=== PATIENT | female | born 1980 | race Caucasian/White ===

== ENCOUNTER 2023-02-10 14:02 | Inpatient (IN) ==
[2023-02-10 15:08] LABS: ABS Lymphocytes 1.1 10^3/uL (1.0-4.8); ABS Monocytes 0.7 10^3/uL (0.0-0.9); Eosinophil % 0.2 %; Hematocrit 38.4 % (35-45); Hemoglobin 13.3 g/dL (11.5-14.3); Lymphocyte % 12.3 %; Mean Corpuscular Hemoglobin 31.8 pg (27-33); Mean Corpuscular Hgb Conc 34.5 g/dL (31-36); Mean Corpuscular Volume 92.2 fL (80-97); Mean Platelet Volume 7.8 fL (7.5-11.2); Nucleated Red Blood Cells % 0.1 /100 WBC (0.0-0.4); Platelet Count 256 10^3/uL (150-450); Red Blood Count 4.16 10^6/uL (3.63-4.92); Red Cell Distribution Width 13.7 % (12-17); White Blood Count 8.9 10^3/uL (3.8-11.8)
[2023-02-10] MEDS ORDERED: oxyCODONE/Acetamin 5/325 mg TAB PO PRN (15:09)
[2023-02-10] MEDS ORDERED: Naloxone 0.4 mg VIAL 0.4 mg/ml 1 ml VIAL IV PRN (15:09)
[2023-02-10] MEDS ORDERED: Ondansetron 4 mg VIAL 2 MG/ML 2 ml VIAL IV PRN ×2 (15:09→18:43)
[2023-02-10] MEDS ORDERED: fentaNYL 100 mcg/2 ml 50 MCG/ML VIAL ONE ×5 (15:16→19:24)
[2023-02-10 15:17] LABS: INR 1.35 (0.88-1.18)
[2023-02-10] MEDS: fentaNYL 100 mcg/2 ml 50 MCG/ML VIAL IV PRN ×7 (15:18→19:41)
[2023-02-10 15:53] LABS: Albumin 4.3 g/dL (3.2-5.2); Albumin/Globulin Ratio 1.8 (1-3); C Reactive Protein 266.07 mg/L (<8.01); Creatinine, Serum 0.6 mg/dL (0.51-0.95); Globulin 2.4 g/dL (2-4); Potassium 3.7 mmol/L (3.5-5.0); Total Bilirubin 0.8 mg/dL (0.2-1.0); Total Protein 6.7 g/dL (6.4-8.9); eGFR CKD-EPI 114.9 (>60)
[2023-02-10] MEDS ORDERED: Ropivacaine 5 MG/ML 20 ML VIAL 0.5% (100 MG) ONE (17:05)
[2023-02-10] MEDS ORDERED: Midazolam 2 mg/2 ml VIAL 1 mg/ml 2 ml VIAL (2 mg) ONE (17:33)
[2023-02-10] MEDS ORDERED: HYDROmorphone 0.5 MG/0.5 ML SYRINGE ONE (17:34)
[2023-02-10] MEDS ORDERED: Ondansetron 4 mg VIAL 2 MG/ML 2 ml VIAL ONE (17:40)
[2023-02-10] MEDS ORDERED: Dexamethasone IV 4 MG/ML VIAL 1 ml VIAL ONE (17:40)
[2023-02-10 17:42] LABS: Erythrocyte Sed Rate 60 mm/Hr (0-19)
[2023-02-10] MEDS ORDERED: ceFAZolin 2 GM in NS PREMIX 2 GM/100 ML BAG IVPB ONE (17:47)
[2023-02-10] MEDS ORDERED: Morphine 10 MG/ML VIAL (1 ml) IV PRN (18:43)
[2023-02-10] MEDS ORDERED: Vancomycin 1,000 MG in NS 0.9% 250 ml 250 ML IVPB ONE (19:03)
[2023-02-10] MEDS ORDERED: oxyCODONE/Acetamin 5/325 mg TAB ONE (19:26)
[2023-02-10] MEDS ORDERED: Vancomycin 1500 MG IV - x ONCE IVPB ONE (21:00)
[2023-02-10] MEDS ORDERED: Vancomycin per Pharmacy 1 EA NOTE FOLLOW UP SCH (21:00)
[2023-02-10] MEDS: Lactated Ringers 1000 ml BAG 1,000 ML IV SCH (21:09)
[2023-02-10] MEDS ORDERED: Cefepime ADVAN 1 GM in NS 0.9% 50 ML 50 ML IVPB SCH (22:00)
[2023-02-10] MEDS: oxyCODONE/Acetamin 5/325 mg TAB PO PRN (22:22)
[2023-02-10] MEDS ORDERED: Naloxone Nasal Spray 4 MG/0.1 ML NASAL.SPR INTRANASAL PRN (22:45)
[2023-02-10] MEDS ORDERED: Senna TAB 8.6 mg TAB PO PRN (22:46)
[2023-02-10] MEDS: Cefepime 1 GM in Dextrose 1 GM/50 ML BAG IV SCH (22:59)
[2023-02-10] MEDS: HYDROmorphone 1 MG/1 ML SYRINGE IV SLOW PU PRN (23:25)
[2023-02-11] MEDS: oxyCODONE/Acetamin 5/325 mg TAB PO PRN ×4 (01:54→19:58)
[2023-02-11] MEDS: Cefepime 1 GM in Dextrose 1 GM/50 ML BAG IV SCH ×3 (05:02→21:26)
[2023-02-11] MEDS: Vancomycin 1,250 MG in NS 0.9% 250 ml 250 ML IVPB SCH ×3 (05:31→22:54)
[2023-02-11] MEDS: HYDROmorphone 1 MG/1 ML SYRINGE IV SLOW PU PRN ×5 (06:14→22:46)
[2023-02-11] MEDS: Lactated Ringers 1000 ml BAG 1,000 ML IV SCH ×2 (07:22→17:54)
[2023-02-12] MEDS: oxyCODONE/Acetamin 5/325 mg TAB PO PRN ×5 (00:18→19:23)
[2023-02-12] MEDS: HYDROmorphone 1 MG/1 ML SYRINGE IV SLOW PU PRN ×5 (03:02→22:24)
[2023-02-12] MEDS: Cefepime 1 GM in Dextrose 1 GM/50 ML BAG IV SCH ×3 (05:02→21:34)
[2023-02-12] MEDS ORDERED: Vancomycin Trough Check NOTE FOLLOW UP ONE (05:30)
[2023-02-12] MEDS: Vancomycin 1,250 MG in NS 0.9% 250 ml 250 ML IVPB SCH ×3 (07:58→22:24)
[2023-02-12] MEDS: Lactated Ringers 1000 ml BAG 1,000 ML IV SCH (11:07)
[2023-02-13] MEDS: oxyCODONE/Acetamin 5/325 mg TAB PO PRN ×6 (00:59→21:22)
[2023-02-13] MEDS: Lactated Ringers 1000 ml BAG 1,000 ML IV SCH (01:51)
[2023-02-13] MEDS: HYDROmorphone 1 MG/1 ML SYRINGE IV SLOW PU PRN ×5 (02:45→22:13)
[2023-02-13] MEDS: Cefepime 1 GM in Dextrose 1 GM/50 ML BAG IV SCH (05:10)
[2023-02-13] MEDS: Vancomycin 1,250 MG in NS 0.9% 250 ml 250 ML IVPB SCH (06:06)
[2023-02-13 06:08] LABS: ABS Basophils 0.1 10^3/uL (0.0-0.1); ABS Eosinophils 0.1 10^3/uL (0.0-0.5); ABS Lymphocytes 1.5 10^3/uL (1.0-4.8); ABS Neutrophils 4.7 10^3/uL (1.5-7.6); Eosinophil % 1.2 %; Hemoglobin 11.8 g/dL (11.5-14.3); Lymphocyte % 20.9 %; Mean Corpuscular Hemoglobin 32.3 pg (27-33); Mean Corpuscular Hgb Conc 34.6 g/dL (31-36); Mean Corpuscular Volume 93.4 fL (80-97); Mean Platelet Volume 7.7 fL (7.5-11.2); Platelet Count 266 10^3/uL (150-450); Red Blood Count 3.64 10^6/uL (3.63-4.92); Red Cell Distribution Width 13.6 % (12-17); White Blood Count 7.4 10^3/uL (3.8-11.8)
[2023-02-13 06:44] LABS: Calcium 8.8 mg/dL (8.6-10.3); Creatinine, Serum 0.49 mg/dL (0.51-0.95); Potassium 4.3 mmol/L (3.5-5.0); eGFR CKD-EPI 120.6 (>60)
[2023-02-13 10:52] LABS: C Reactive Protein 276.48 mg/L (<8.01)
[2023-02-13] MEDS ORDERED: cefTRIAXone 2 gm/50 mL D5W 2 GM/50 ML BAG IV SCH (17:00)
[2023-02-14] MEDS ORDERED: Vancomycin Trough Check NOTE FOLLOW UP ONE (05:30)
[2023-02-14 10:31] VITALS: BP 114/75
[2023-02-14] MEDS ORDERED: cefTRIAXone 2 gm/50 mL D5W 2 GM/50 ML BAG IV ONE (14:00)
[2023-02-15] MEDS ORDERED: cefTRIAXone 2 gm/50 mL D5W 2 GM/50 ML BAG IV SCH (14:00)
== END 2023-02-14 15:15 | disposition home or self-care (01) | DRG 313 ==
LOC: MED 14:02 → OR 14:02
PROVIDERS: ADMIT Orthopaedic Surgery Adult Reconstructive Orthopaedic Surgery; ATTEND Orthopaedic Surgery Adult Reconstructive Orthopaedic Surgery